=== PATIENT | female | born 1950 | race Caucasian/White ===

== ENCOUNTER → 2017-10-18 | Outpatient (CLI) | payer MEDICARE, OTHER ==
[~2017-10-18] MED LIST: KEFLEX500 M1 PO; OMEPRAZOLE 20 M20 M1 PO; PYRIDIUM100 M1 PO; SIMVASTATIN40 MG PO; SINGULAIR 10 MG10 MG PO; SYNTHROID50 MCG PO; TRICOR145 MG PO
== END ==
LOC: M.RAD 15:01
DX: R05 Cough (principal)

== ENCOUNTER → 2017-11-06 | Outpatient (CLI) | payer MEDICARE, OTHER ==
--- NOTE | 2017-11-06 17:02 | 2DMMODE ---
[place] [address] 2 D/M-MODE ECHOCARDIOGRAM Name: SIENNA MICHAEL Room: [facility]#: [id number] Admission: 11/06/17 Attend Phys: Carolann Woodward Discharge: Date of : 48 Date of Service: 11/06/17 1701 Report #: [id number] THIS REPORT FOR: //name// APPROVED REPORT Study performed: 11/06/2017 15:05:07 EXAM: Comprehensive 2D, Doppler, and color-flow Echocardiogram Patient Location: Out-Patient Status: routine BSA: 1.89 HR: 60 bpm BP: 140/92 mmHg Other Information Study Quality: Good Indications Dyspnea 2D Dimensions LVEF(%): 70.43 (>50%) IVSd: 9.52 (7-11mm) LVOT Diam: 20.65 (18-24mm) LVDd: 50.25 mm PWd: 6.63 (7-11mm) Ascending Ao: 28.32 (22-36mm) LVDs: 30.13 (25-40mm) Aortic Root: 25.47 mm Grullon's LVEF: 70.43 % Volumes Left Atrial Volume (Systole) LA ESV Index: 11.40 mL/m2 Aortic Valve AoV Peak Carlos.: 1.12 m/s AO Peak Gr.: 5.06 mmHg LVOT Max P.75 mmHg AO Mean Gr.: 3.29 mmHg LVOT Mean P.28 mmHg LVOT Max V: 0.83 m/s AO V2 VTI: 27.45 cm LVOT Mean V: 0.51 m/s ELIZABETH (VTI): 2.41 cm2 LVOT V1 VTI: 19.78 cm Mitral Valve E/A Ratio: 1.02 MV Decel. Time: 219.63 [place] [address] 2 D/M-MODE ECHOCARDIOGRAM Name: SIENNA MICHAEL Room: [facility]#: [id number] Admission: 11/06/17 Attend Phys: Carolann Woodward Discharge: Date of : 48 Date of Service: 11/06/17 1701 Report #: [id number] MV E Max Carlos.: 0.72 m/s MV PHT: 63.69 ms MVA (PHT): 3.45 cm2 TDI E/Lateral E': 6.00 E/Medial E': 6.00 Medial E' Carlos.: 0.12 m/s Lateral E' Carlos.: 0.12 m/s Pulmonary Valve PV Peak Carlos.: 0.96 m/s PV Peak Gr.: 3.71 mmHg Tricuspid Valve TR Peak Gr.: 22.72 mmHg RVSP: 27.72 mmHg Left Ventricle The left ventricle is normal size. There is normal LV segmental wall motion. There is normal left ventricular wall thickness. Left ventricular systolic function is normal. The left ventricular ejection fraction is within the normal range. LVEF is 55-60%. The left ventricular diastolic function is normal. Right Ventricle The right ventricle is normal size. The right ventricular systolic function is normal. Atria The left atrium size is normal. The right atrium size is normal. Aortic Valve The aortic valve is normal in structure. No aortic regurgitation is present. There is no aortic valvular stenosis. Mitral Valve The mitral valve is normal in structure. Mild mitral regurgitation. No evidence of mitral valve stenosis. Tricuspid Valve The tricuspid valve is normal in structure. Mild tricuspid regurgitation. The RVSP is _27.7 mmHg. Pulmonic Valve The pulmonary valve is normal in structure. [place] [address] 2 D/M-MODE ECHOCARDIOGRAM Name: SIENNA MICHAEL Room: [facility]#: [id number] Admission: 11/06/17 Attend Phys: Carolann Woodward Discharge: Date of : 48 Date of Service: 11/06/17 1701 Report #: [id number] Great Vessels The aortic root is normal in size. IVC is normal in size and collapses with >50% inspiration Pericardium There is no pericardial effusion. <Conclusion> The left ventricle is normal size. There is normal left ventricular wall thickness. Left ventricular systolic function is normal. The left ventricular ejection fraction is within the normal range. LVEF is 55-60%. The left ventricular diastolic function is normal. The right ventricle is normal size. The left atrium size is normal. The aortic valve is normal in structure. The mitral valve is normal in structure. Mild mitral regurgitation. The tricuspid valve is normal in structure. Mild tricuspid regurgitation. The RVSP is _27.7 mmHg. IVC is normal in size and collapses with >50% inspiration There is no pericardial effusion. There is normal LV segmental wall motion. <ELECTRONICALLY SIGNED> By: Neo Palacios MD, FACC 11/06/171700 00 00 Neo Palacios MD, FACC /INF
== END ==
LOC: M.CRD 10-31 13:00
DX: R06.02 Shortness of breath (principal); R53.83 Other fatigue

== ENCOUNTER 2018-01-28 05:55 | Emergency (ER) | payer MEDICARE, OTHER ==
[~2018-01-28] VITALS: Ht 170.2 cm; Wt 79.4 kg
[2018-01-28] MEDS ORDERED: TRICOR145 MG PO (06:32)
[2018-01-28] MEDS ORDERED: SYNTHROID50 MCG PO (06:32)
[2018-01-28] MEDS ORDERED: SINGULAIR 10 MG10 MG PO (06:33)
[2018-01-28 06:34] LABS: URINE BILIRUBIN NEGATIVE (Negative); URINE BLOOD 3+ (Negative); URINE CLARITY CLEAR; URINE COLOR YELLOW; URINE GLUCOSE-RANDOM NEGATIVE (Negative); URINE KETONES NEGATIVE (Negative); URINE LEUKOCYTES-REFLEX 1+ (Negative); URINE NITRITE-REFLEX NEGATIVE (Negative); URINE PROTEIN 1+ (Negative); URINE UROBILINOGEN 0.2 E.U./dl (0.2-1.0)
[2018-01-28] MEDS ORDERED: SIMVASTATIN40 MG PO (06:34)
[2018-01-28] MEDS ORDERED: OMEPRAZOLE 20 M20 M1 PO (06:34)
[2018-01-28 06:35] LABS: BACTERIA-REFLEX 1-9 Few /HPF (None Seen); CASTS None Seen /LPF (None Seen); MUCUS None Seen strn/LPF (None Seen); SQUAMOUS 0-3 Few /LPF (0-3); URINE RBC >20 Many /HPF (0-2); URINE WBC-REFLEX 0-5 Rare /HPF (0-5)
[2018-01-28 06:36] LABS: CRYSTALS None Seen /LPF (None Seen)
[2018-01-28 07:30] LABS: CALCIUM 9.1 mg/dL (8.5-10.1); CREATININE 0.9 mg/dL (0.6-1.3); POTASSIUM 3.7 mmol/L (3.5-5.1)
[2018-01-28 07:35] LABS: ALBUMIN 3.6 g/dL (3.4-5.0); TOTAL BILIRUBIN 0.3 mg/dL (<0.1-1.0); TOTAL PROTEIN 7.1 g/dL (6.4-8.2)
[2018-01-28] MEDS ORDERED: KEFLEX500 M1 PO (08:15)
[2018-01-28] MEDS ORDERED: PYRIDIUM100 M1 PO (08:15)
[2018-01-28 08:32] VITALS: BP 142/67
== END 2018-01-28 08:33 | disposition home or self-care (01) ==
LOC: M.ERS 05:55
PROVIDERS: Emergency Medicine
DX: N30.91 Cystitis, unspecified with hematuria (principal); E03.9 Hypothyroidism, unspecified; E78.00 Pure hypercholesterolemia, unspecified; K21.9 Gastro-esophageal reflux disease without esophagitis

== ENCOUNTER → 2019-01-20 | Outpatient (CLI) | payer MEDICARE, OTHER ==
[~2019-01-20] MED LIST changes: +BACTRIM DS TAB1 EACH PO
== END ==
LOC: M.RAD 13:26
DX: M85.88 Other specified disorders of bone density and structure, other site (principal)

== ENCOUNTER → 2019-05-09 | Outpatient (CLI) | payer MEDICARE, OTHER | LOC: M.MRI 08:30 | DX: R41.3 Other amnesia (principal); R41.82 Altered mental status, unspecified ==